=== PATIENT | female | born 1965 | race Caucasian/White ===

== ENCOUNTER → 2018-04-23 | Outpatient (CLI) | payer OTHER ==
--- NOTE | 2018-04-23 11:40 | KCIC ---
Three-view right foot dated 04/23/2018. No comparison available. Clinical data indication: Pain after injury one week ago. FINDINGS: 3 views right foot show normal bony alignment. No displaced fracture. No acute osseous or articular abnormality. No periostitis or bone destruction. Prominent calcaneal spur. IMPRESSION: No acute findings. Electronically signed by: Luis Fernando Mahajan MD (04/23/2018 11:37 AM) [id number]
== END | disposition home or self-care (01) ==
LOC: KCIC 10:47
PROVIDERS: ATTEND Nurse Practitioner Family
DX: M79.671 Pain in right foot (principal)
CPT/HCPCS: 73630

== ENCOUNTER → 2019-04-08 | Outpatient (CLI) | payer OTHER ==
--- NOTE | 2019-04-08 18:12 | KCIC ---
Examination: HAND RIGHT 3V History: Pain for one month, fell Comparison/Correlation: None Findings: Total 3 images of the right third digit were obtained including PA view of the hand and oblique view of the hand. Fracture involving third digit middle phalanx at the distal metaphysis extending to the joint space is present. Slight displacement is evident. Nondisplaced fracture involving the second digit volar basilar aspect is questioned on the lateral view. No radiographic foreign bodies. Mild distal interphalangeal joint degenerative narrowing compatible with age noted. Impression: Third digit middle phalangeal mildly displaced fracture at the distal aspect. Volar third middle phalangeal anterior basilar fracture appears to present as well. No significant callus formation. Electronically signed by: Jaya Dominguez MD (04/08/2019 6:09 PM) [facility]
== END | disposition home or self-care (01) ==
LOC: KCIC 08:58
PROVIDERS: ATTEND Nurse Practitioner Family
DX: S62.632A Displaced fracture of distal phalanx of right middle finger, initial encounter for closed fracture (principal); X58.XXXA Exposure to other specified factors, initial encounter; Y93.89 Activity, other specified; Y92.89 Other specified places as the place of occurrence of the external cause; Y99.8 Other external cause status
CPT/HCPCS: 73130

== ENCOUNTER → 2021-09-02 | Outpatient (CLI) | payer OTHER ==
--- NOTE | 2021-09-02 17:15 | KCIC ---
EXAM: XR HAND_RIGHT 3 VIEWS 09/02/2021 10:05 AM CLINICAL INDICATION: Fell on ice one week ago, right hand pain COMPARISON: Right hand radiograph 04/08/2019 TECHNIQUE: PA, oblique, and lateral views of the right hand FINDINGS: The bones are diffusely demineralized. No acute fracture or malalignment. Joint spaces are maintained. Small osteophytes at the second DIP joint. No focal soft tissue abnormality. IMPRESSION: No acute osseous abnormality. Electronically signed by: Davida Solorio MD (09/02/2021 5:13 PM) [id number]
== END ==
LOC: KCIC 10:02
PROVIDERS: ATTEND Nurse Practitioner Family
DX: M25.741 Osteophyte, right hand (principal)
CPT/HCPCS: 73130